=== PATIENT | male | born 1970 | race Caucasian/White ===

== ENCOUNTER 2020-07-24 08:09 | Outpatient (REF) | payer OTHER, SELFPAY ==
--- NOTE | 2020-07-24 08:19 | XR_ITS ---
EXAMINATION: XR CHEST CLINICAL INFORMATION: Left chest pressure COMPARISON: June 11, 2019 TECHNIQUE: 2 views of the chest were obtained. FINDINGS: No significant abnormality is noted involving the heart, lungs, mediastinum, bony thorax or soft tissues. XR/XR chest 2V IMPRESSION: No acute disease.
== END 2020-07-24 08:10 | disposition home or self-care (01) ==
LOC: HO.XRAY 08:09
PROVIDERS: PCP Internal Medicine; Visit Provider Internal Medicine
DX: R07.89 Other chest pain (principal)
CPT/HCPCS: 71046

== ENCOUNTER 2020-11-19 15:58 | Outpatient (REF) | payer OTHER, SELFPAY ==
[2020-11-19 16:17] LABS: MANUAL DIFF FLAG NO
[2020-11-19 16:21] LABS: Basophils Absolute Auto 0.1 X10*3/uL (0.0-0.2); Basophils Percent Auto 0.9 % (0-2); Eosinophils Absolute Auto 0.1 X10*3/uL (0.0-0.4); Eosinophils Percent Auto 2.1 % (0-4); Hematocrit 42.1 % (42-52); Hemoglobin 14.5 g/dl (14.0-18.0); Imm Gran Abs Auto 0.02 X10*3/uL (0.00-0.03); Imm Gran Pct Auto 0.3 % (0.0-0.4); Lymphocytes Absolute Auto 2.3 X10*3/uL (1.2-4.9); Lymphocytes Percent Auto 34.2 % (20-40); Mean Corpuscular HGB Conc 34.4 g/dl (31.0-36.0); Mean Corpuscular Volume 95.7 fL (80-98); Mean Platelet Volume 11.7 fL (9.4-12.4); Monocytes Absolute Auto 0.6 X10*3/uL (0.1-1.2); Monocytes Percent Auto 9.1 % (2-11); Neutrophils Absolute Auto 3.6 X10*3/uL (2.0-8.3); Neutrophils Percent Auto 53.4 % (45-73); Platelet Count 236 X10*3/uL (160-400); Red Cell Distribution Width 11.7 % (11.0-16.0); White Blood Count 6.7 X10*3/uL (4.8-10.8)
[2020-11-19 16:49] LABS: Alanine Aminotransferase 43 U/L (0-40); Albumin Level 4.6 g/dL (3.5-5.0); Alkaline Phosphatase 39 U/L (39-117); Anion Gap 14 (12-20); Aspartate Amino Transferase 20 U/L (5-37); Bilirubin Total 0.5 mg/dL (0.0-1.0); Blood Urea Nitrogen 17 mg/dL (9-16); C Reactive Protein 0.07 mg/dL (< or = 0.50); Calcium 9.7 mg/dL (8.4-10.2); Carbon Dioxide 27 mmol/L (22-29); Chloride 105 mmol/L (96-108); Cholesterol 206 mg/dL; Estimated Glomerular Filt Rate > 60; Glucose Random 141 mg/dL (60-115); HDL Cholesterol 39 mg/dL; LDL Cholesterol Calculated 100 mg/dl; Sodium 142 mmol/L (135-145); Total Protein 7.7 g/dL (6.5-8.0); Triglycerides 339 mg/dL
[2020-11-19 17:12] LABS: T4 Thyroxine 6.5 ug/dL (4.5-12.0); Thyroid Stimulating Hormone 1.61 uIU/mL (0.32-4.0)
== END 2020-11-19 15:59 | disposition home or self-care (01) ==
LOC: HO.LAB 15:58
PROVIDERS: PCP Internal Medicine; Visit Provider Internal Medicine
DX: G47.33 Obstructive sleep apnea (adult) (pediatric) (principal); J45.909 Unspecified asthma, uncomplicated; T68.XXXA Hypothermia, initial encounter
CPT/HCPCS: 36415; 80053; 80061; 84436; 84443; 85025; 86140

== ENCOUNTER 2020-11-30 08:48 | Outpatient (REF) | payer OTHER, SELFPAY ==
[2020-11-30 10:06] LABS: Estimated Average Glucose 105 mg/dL; Hemoglobin A1c % 5.3 %
[2020-11-30 10:20] LABS: Glucose Random 90 mg/dL (60-115)
== END 2020-11-30 08:49 | disposition home or self-care (01) ==
LOC: HO.LAB 08:48
PROVIDERS: PCP Internal Medicine; Visit Provider Internal Medicine
DX: R73.03 Prediabetes (principal); R73.9 Hyperglycemia, unspecified
CPT/HCPCS: 36415; 82947; 83036

== ENCOUNTER 2020-12-29 11:25 | Outpatient (REF) | payer OTHER, SELFPAY ==
[2020-12-29 12:11] LABS: Influenza A PCR NEGATIVE (Negative); Influenza B PCR NEGATIVE (Negative); Resp Syncy Virus RNA Qual PCR NEGATIVE (Negative); SARS COV2 PCR INHOUSE NEGATIVE (Negative)
== END 2020-12-29 11:26 | disposition home or self-care (01) ==
LOC: HO.LNP 11:25
PROVIDERS: Visit Provider Internal Medicine
DX: Z20.822 Contact with and (suspected) exposure to COVID-19 (principal)
CPT/HCPCS: 0241U

== ENCOUNTER 2021-02-09 16:43 | Outpatient (REF) | payer OTHER, SELFPAY ==
--- NOTE | ~2021-02-09 | XR_ITS ---
EXAMINATION: PELVIS AND LUMBAR SPINE. CLINICAL INFORMATION: Joint pain COMPARISON: None TECHNIQUE: 3 views lumbar spine. Single view AP pelvis FINDINGS: AP PELVIS: There is normal symmetry of bilateral hip joints and SI joints. No visible acute fracture, dislocation or subluxation seen. LUMBAR SPINE: There is normal lumbar lordosis. The vertebral heights, alignment and disc heights are normal. There is no visible acute fracture, dislocation or subluxation seen. The paravertebral soft tissues are normal. XR/XR lumbar spine 2-3V IMPRESSION: Unremarkable AP pelvis. Unremarkable lumbar spine exam
--- NOTE | ~2021-02-09 | XR_ITS ---
EXAMINATION: PELVIS AND LUMBAR SPINE. CLINICAL INFORMATION: Joint pain COMPARISON: None TECHNIQUE: 3 views lumbar spine. Single view AP pelvis FINDINGS: AP PELVIS: There is normal symmetry of bilateral hip joints and SI joints. No visible acute fracture, dislocation or subluxation seen. LUMBAR SPINE: There is normal lumbar lordosis. The vertebral heights, alignment and disc heights are normal. There is no visible acute fracture, dislocation or subluxation seen. The paravertebral soft tissues are normal. XR/XR pelvis 1-2V IMPRESSION: Unremarkable AP pelvis. Unremarkable lumbar spine exam
== END 2021-02-09 16:44 | disposition home or self-care (01) ==
LOC: HO.XRAY 16:43
PROVIDERS: PCP Internal Medicine; Visit Provider Internal Medicine
DX: M54.5 Low back pain (principal); R10.2 Pelvic and perineal pain
CPT/HCPCS: 72100; 72170

== ENCOUNTER 2021-03-12 12:32 | Outpatient (REF) | payer OTHER, SELFPAY ==
[2021-03-12 14:34] LABS: Estimated Average Glucose 103 mg/dL; Hemoglobin A1c % 5.2 %
[2021-03-12 15:04] LABS: Anion Gap 13 (12-20); Blood Urea Nitrogen 12 mg/dL (9-16); Calcium 9.3 mg/dL (8.4-10.2); Carbon Dioxide 24 mmol/L (22-29); Chloride 107 mmol/L (96-108); Estimated Glomerular Filt Rate > 60; Glucose Random 73 mg/dL (60-115); Potassium 4.4 mmol/L (3.3-5.1); Sodium 140 mmol/L (135-145)
== END 2021-03-12 12:33 | disposition home or self-care (01) ==
LOC: HO.LAB 12:32
PROVIDERS: PCP Internal Medicine; Visit Provider Internal Medicine
DX: R73.03 Prediabetes (principal)
CPT/HCPCS: 36415; 80048; 83036

== ENCOUNTER 2022-02-16 08:16 | Outpatient (REF) | payer OTHER, SELFPAY ==
--- NOTE | ~2022-02-16 | XR_ITS ---
EXAMINATION: XR WRIST, RIGHT CLINICAL INFORMATION: Pain in right wrist. COMPARISON: None TECHNIQUE: 4 views. FINDINGS: There is fracture involving the radial styloid process of indeterminate age with mild soft tissue. No additional fractures seen. The radioulnar carpal, carpometacarpal and intercarpal joint spaces are maintained normal. There is no visible acute fracture, dislocation or subluxation seen. XR/XR wrist RT w scaphoid IMPRESSION: There is fracture involving the ulnar styloid process with mild deformity and mild soft tissue swelling along the distal radius. Indeterminate fracture age. Correlate with clinical history.
== END 2022-02-16 08:17 | disposition home or self-care (01) ==
LOC: HO.HOSX 08:16
PROVIDERS: PCP Internal Medicine; Visit Provider Orthopaedic Surgery
DX: S52.501P Unspecified fracture of the lower end of right radius, subsequent encounter for closed fracture with malunion (principal)
CPT/HCPCS: 73110

== ENCOUNTER 2022-10-11 11:51 | Outpatient (REF) | payer OTHER, SELFPAY ==
--- NOTE | ~2022-10-11 | XR_ITS ---
EXAMINATION: XR CHEST CLINICAL INFORMATION: Cough, asthma COMPARISON: Chest radiographs 07/24/2020, 06/11/2019 TECHNIQUE: 2 views of the chest were obtained. FINDINGS: The lungs are clear. No airspace consolidation, hyperinflation, groundglass opacity, or effusion. Heart size normal. Vascularity normal. The hilar and mediastinal contours are unremarkable. No acute bony abnormality. XR/XR chest 2V IMPRESSION: Unremarkable examination.
--- NOTE | ~2022-10-11 | XR_ITS ---
EXAMINATION: XR KNEE, RIGHT XR KNEE, LEFT CLINICAL INFORMATION: Knee pain COMPARISON: None TECHNIQUE: Each knee is imaged in 4 views. There are a total of 8 views, including AP projections with weightbearing. FINDINGS: Right: No fracture, dislocation, or destructive process. There is no joint narrowing or erosive change or chondrocalcinosis. Axial view patella shows no lateralization or tilting. There is trace thickening suprapatellar bursa consistent with trace effusion. Hoffa's fat pad appears normal. There is spurring at the quadriceps insertion patella. Left: No fracture, dislocation, or destructive process. There is no joint narrowing or erosive change or chondrocalcinosis. Axial view patella shows no lateralization or tilting. No effusion. Hoffa's fat pad appears normal. XR/XR knee RT 4V IMPRESSION: Right: -Trace fluid suprapatellar bursa. -Spurring quadriceps insertion patella. -No joint narrowing or erosive change or chondrocalcinosis. Left: -No joint narrowing or erosive change or chondrocalcinosis. -No effusion.
--- NOTE | ~2022-10-11 | XR_ITS ---
EXAMINATION: XR KNEE, RIGHT XR KNEE, LEFT CLINICAL INFORMATION: Knee pain COMPARISON: None TECHNIQUE: Each knee is imaged in 4 views. There are a total of 8 views, including AP projections with weightbearing. FINDINGS: Right: No fracture, dislocation, or destructive process. There is no joint narrowing or erosive change or chondrocalcinosis. Axial view patella shows no lateralization or tilting. There is trace thickening suprapatellar bursa consistent with trace effusion. Hoffa's fat pad appears normal. There is spurring at the quadriceps insertion patella. Left: No fracture, dislocation, or destructive process. There is no joint narrowing or erosive change or chondrocalcinosis. Axial view patella shows no lateralization or tilting. No effusion. Hoffa's fat pad appears normal. XR/XR knee LT 4V IMPRESSION: Right: -Trace fluid suprapatellar bursa. -Spurring quadriceps insertion patella. -No joint narrowing or erosive change or chondrocalcinosis. Left: -No joint narrowing or erosive change or chondrocalcinosis. -No effusion.
[2022-10-11 12:16] LABS: MANUAL DIFF FLAG NO
[2022-10-11 13:07] LABS: Basophils Absolute Auto 0.1 X10*3/uL (0.0-0.2); Basophils Percent Auto 0.9 % (0-2); Eosinophils Absolute Auto 0.2 X10*3/uL (0.0-0.4); Eosinophils Percent Auto 2.5 % (0-4); Hematocrit 43.2 % (42.0-52.0); Hemoglobin 14.6 g/dl (14.0-18.0); Imm Gran Abs Auto 0.02 X10*3/uL (0.00-0.03); Imm Gran Pct Auto 0.3 % (0.0-0.4); Lymphocytes Absolute Auto 2.6 X10*3/uL (1.2-4.9); Lymphocytes Percent Auto 38.7 % (20-40); Mean Corpuscular HGB Conc 33.8 g/dl (31.0-36.0); Mean Corpuscular Hemoglobin 32.5 pg (27.0-33.0); Mean Corpuscular Volume 96.2 fL (80.0-98.0); Monocytes Absolute Auto 0.8 X10*3/uL (0.1-1.2); Monocytes Percent Auto 11.2 % (2-11); Neutrophils Absolute Auto 3.1 x10*3/uL (2.0-8.3); Neutrophils Percent Auto 46.4 % (45-73); Platelet Count 234 X10*3/uL (160-400); Red Blood Count 4.49 X10*6/uL (4.60-5.80); Red Cell Distribution Width 11.8 % (11.0-16.0); White Blood Count 6.7 X10*3/uL (4.8-10.8)
[2022-10-11 14:01] LABS: Alanine Aminotransferase 27 U/L (0-40); Albumin Level 4.7 g/dL (3.5-5.0); Alkaline Phosphatase 32 U/L (39-117); Anion Gap 15 (12-20); Aspartate Amino Transferase 17 U/L (5-37); Bilirubin Total 0.8 mg/dL (0.0-1.0); Blood Urea Nitrogen 16 mg/dL (9-16); Calcium 9.9 mg/dL (8.4-10.2); Carbon Dioxide 23 mmol/L (22-29); Chloride 107 mmol/L (96-108); Cholesterol 257 mg/dL; Estimated Glomerular Filt Rate > 60; Glucose Fasting 78 mg/dL (60-99); HDL Cholesterol 43 mg/dL; LDL Cholesterol Calculated 185 mg/dl; Potassium 4.3 mmol/L (3.3-5.1); Sodium 141 mmol/L (135-145); Total Protein 7.6 g/dL (6.5-8.0); Triglycerides 145 mg/dL
== END 2022-10-11 11:52 | disposition home or self-care (01) ==
LOC: HO.XRAY 11:51
PROVIDERS: PCP Internal Medicine; Visit Provider Internal Medicine
DX: Z00.00 Encounter for general adult medical examination without abnormal findings (principal); M25.562 Pain in left knee; M25.561 Pain in right knee; J45.909 Unspecified asthma, uncomplicated
CPT/HCPCS: 36415; 71046; 73564; 80053; 80061; 85025

== ENCOUNTER 2023-02-10 07:23 | Day surgery (SDC) | payer OTHER, SELFPAY ==
--- NOTE | 2023-02-09 14:07 | P.CONAN_ITS ---
Documented by User: Mago Bee NP 02/09/23 14:08 HPI - Anesthesia Eval Consult details Narrative: 52yo M for Upper Endoscopy and Colonoscopy PMF Active Problems Active Problems: All Active Problems (Updated 02/09/23 @ 13:48 by Yenifer Beth RN) Right wrist pain (Acute) Fracture of distal end of right radius with malunion (Acute) Past Medical History Medical History (Updated 02/09/23 @ 13:48 by Yenifer Beth RN) Asthma GERD (gastroesophageal reflux disease) High cholesterol HTN (hypertension) IBS (irritable bowel syndrome) Surgical History Surgical History (Updated 02/09/23 @ 13:48 by Yenifer Beth RN) H/O colonoscopy H/O esophagogastroduodenoscopy H/O hernia repair Social History Social History (Updated 02/16/22 @ 08:40 by SHANNON Felipe) Patient Tobacco Use Status: Former Tobacco user Quit Date: 2021 Tobacco use type: Cigarette Use of substances other than those prescribed or required for medical reasons: Yes Substance Use Type Other:: gummies thc Substance Use Frequency: Occasionally Are you DNR?: No Advance Directives: No Advance Directives Information Provided: Yes Current occupational status: employed 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 Meds Allergies Allergy/AdvReac Type Severity Reaction Status Date / Time aspirin [ASPIRIN] Allergy Unknown STOMACH Unverified 02/16/22 08:39 UPSET Home Medications Medication Instructions Recorded Confirmed Last Taken Type albuterol sulfate 90 mcg/actuation 2 puff PO TID PRN Wheezing 02/16/22 Unknown History aerosol inhaler atorvastatin 10 mg tablet 10 mg PO DAILY 02/09/23 02/09/23 Unknown History pantoprazole 40 mg tablet,delayed 40 mg PO DAILY 02/09/23 02/09/23 Unknown History release Exam Exam Date and Time: February 09, 2023 1407 Pertinent Lab Results Pertinent Lab Results: Laboratory Tests 10/11/22 10/11/22 12:15 12:15 WBC 6.7 Hgb 14.6 Hct 43.2 Plt Count 234 Sodium 141 Potassium 4.3 Chloride 107 Carbon Dioxide 23 BUN 16 Creatinine 1.06 Assessment and Plan Assessment Anesthesia Assessment: Chart Reviewed Documented by User: Alva Oliver MD 02/10/23 09:45 [facility] Past Medical History Medical History (Updated 02/09/23 @ 13:48 by Yenifer Beth RN) Asthma GERD (gastroesophageal reflux disease) High cholesterol HTN (hypertension) IBS (irritable bowel syndrome) Family History Family history of problems with anesthesia: No Surgical History Surgical History (Updated 02/09/23 @ 13:48 by Yenifer Beth RN) H/O colonoscopy H/O esophagogastroduodenoscopy H/O hernia repair History of Problems with Anesthesia: No Social History Social History (Updated 02/16/22 @ 08:40 by Mirella York [facility] Patient Tobacco Use Status: Former Tobacco user Quit Date: 2021 Tobacco use type: Cigarette Use of substances other than those prescribed or required for medical reasons: Yes Substance Use Type Other:: gummies thc Substance Use Frequency: Occasionally Are you DNR?: No Advance Directives: No Advance Directives Information Provided: Yes Current occupational status: employed 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 Meds Allergies Allergy/AdvReac Type Severity Reaction Status Date / Time aspirin [ASPIRIN] Allergy Unknown STOMACH Unverified 02/16/22 08:39 UPSET Home Medications Medication Instructions Recorded Confirmed Last Taken Type albuterol sulfate 90 mcg/actuation 2 puff PO TID PRN Wheezing 02/16/22 Unknown History aerosol inhaler atorvastatin 10 mg tablet 10 mg PO DAILY 02/09/23 02/09/23 Unknown History pantoprazole 40 mg tablet,delayed 40 mg PO DAILY 02/09/23 02/09/23 Unknown History release Exam Airway Mallampati Class: I TM Dist: >3cm Neck ROM: Full Loose/Missing/Broken Teeth: No Heart: rr Lungs: cta Assessment and Plan Assessment Anesthesia Assessment: Anesthesia Plan Discussed Final Anesthetic Review Family History of Problems with Anesthesia: No History of Problems with Anesthesia: No NPO: Yes ASA Class: II Final Preanesthetic Review: No Changes in Pt Med Stat, Meds/Allgs Chart Reviewed, Consent Obtained/Reviewed and Anes Risks/Benef Reviewed Patient Risk: Low Procedure Risk: Low Anesthetic Plan Anesthetic Plan: MAC: Disposition: Standard PACU
[2023-02-10 08:06] VITALS: BP 133/80; PULSE 46; RESP 16; TEMP 36.3; O2SAT 98; BMI 29.2
[2023-02-10] MEDS: Lactated Ringers 1,000 ML 100 ML IVCONT (08:20)
--- NOTE | 2023-02-10 10:06 | PM.OP ---
Brief Operative Note Date of Service: 02/10/23 Pre-op diagnosis: GERD, Screening Post-op diagnosis: other (Small hiatal hernia, Colon polyp) Procedure: EGD, Colonoscopy to the cecum with cold snare polypectomy x 1 Surgeon: Danilo Harris Anesthesia: MAC Was an Operations Support Specialist used for this Procedure?: No Estimated blood loss (mL): 2.0 Pathology: other (A. Colon polyp at 15cm) Condition: stable Disposition: PACU
[2023-02-10 10:09] VITALS: BP 117/56; PULSE 75; RESP 16; TEMP 36.2; O2SAT 97
[2023-02-10 10:24] VITALS: BP 124/80; PULSE 60; RESP 18; TEMP 36.5; O2SAT 97
--- NOTE | 2023-02-10 10:56 | OP_ITS ---
DATE OF SERVICE: 02/10/2023 SURGEON: Danilo Harris MD INDICATIONS: The patient presents for evaluation of chronic gastroesophageal reflux and colorectal cancer screening. Full consent has been obtained from him for this, including risks of bleeding and perforation. PREOPERATIVE DIAGNOSIS: POSTOPERATIVE DIAGNOSIS: PROCEDURE PERFORMED: Esophagogastroduodenoscopy and colonoscopy to the cecum with cold snare polypectomy. ESTIMATED BLOOD LOSS: COMPLICATIONS: ANESTHESIA: Monitored anesthesia care. ASSISTANTS: SPECIMENS: PREOPERATIVE DIAGNOSES: Colorectal cancer screening and gastroesophageal reflux. POSTOPERATIVE DIAGNOSES: Colorectal cancer screening and gastroesophageal reflux, small hiatal hernia, colon polyp, diverticulosis, internal hemorrhoids. DESCRIPTION OF PROCEDURE: The patient was placed in the left lateral decubitus position. The Olympus video gastroscope was passed in the posterior oropharynx and upper esophagus under direct vision. The scope was passed slowly to the distal esophagus. The gastroesophageal junction appeared normal at 38 cm. There was no sign of any esophagitis nor Velasquez's esophagus. The scope entered the stomach. There was a small hiatal hernia. The scope was advanced to the pylorus and the duodenum was cannulated to the descending portion. The duodenum including the bulb appeared normal without mass or ulceration. The scope was withdrawn back to the stomach. The gastric antrum and body appeared normal with good peristalsis. The scope was retroflexed visualizing the proximal stomach carefully, which appeared normal, without any sign of mass or ulceration. The scope was straightened and withdrawn back to the esophagus. The esophageal mucosa appeared completely normal. The scope was withdrawn from the patient. He was turned around for the colonoscopy. The digital rectal exam revealed no abnormalities. The Olympus video pediatric colonoscope was entered into the rectum and advanced easily to the cecum. Once in the cecum, I did identify a normal-appearing cecal pouch with appendiceal orifice and a normal-appearing ileocecal valve. There was transillumination of light deep in the right lower quadrant. The scope was then slowly withdrawn assessing all mucosal surfaces carefully. Preparation was excellent. At 15 cm was an approximately 5 or 6 mm polyp, which was removed by cold snare polypectomy and recovered by suction. There was no sign of any residual polyp tissue nor any significant bleeding. I did not visualize any other polyps, colitis, nor angiodysplasia. There were occasional diverticula in the sigmoid colon. In the rectum, the scope was retroflexed visualizing small internal hemorrhoids, but no other pathology. The rectal mucosa appeared normal. The scope was straightened and withdrawn from the patient. He tolerated the procedures well and was returned to the recovery area in stable condition. IMPRESSION: 1. Colon polyp. 2. Mild diverticulosis. 3. Small internal hemorrhoids. 4. Small hiatal hernia. PLAN: The results of the pathology will be checked. If the colon polyp is a tubular adenoma, I would recommend a followup colonoscopy in 5 years. If it is only hyperplastic, I would recommend a followup closely in 10 years. He was advised not to use any aspirin or NSAIDs for 1 week. In regard to the reflux, I did advise him that he could use his pantoprazole daily if need be or switch to an [id number] PPI and/or H2 dominik as needed. He will otherwise see me on a p.r.n. basis. This has been discussed with his . MD DERRICK Quezada/LACY / [id number] MTDCasey
== END 2023-02-10 10:40 | disposition home or self-care (01) ==
PROVIDERS: PCP Internal Medicine; Visit Provider Internal Medicine
PROC: (CPT 45385; principal; 2023-02-10 09:30)
DX: Z12.11 Encounter for screening for malignant neoplasm of colon (principal); D12.6 Benign neoplasm of colon, unspecified; K57.30 Diverticulosis of large intestine without perforation or abscess without bleeding; K64.8 Other hemorrhoids; K21.9 Gastro-esophageal reflux disease without esophagitis; K44.9 Diaphragmatic hernia without obstruction or gangrene; I10 Essential (primary) hypertension; J45.909 Unspecified asthma, uncomplicated
CPT/HCPCS: 45385; 43235; 88305; J2250

== ENCOUNTER 2023-10-03 16:37 | Outpatient (REF) | payer OTHER, SELFPAY | END 2023-10-03 16:38 | disposition home or self-care (01) | LOC: HO.XRAY 16:37 | PROVIDERS: PCP Internal Medicine; Visit Provider Internal Medicine | DX: R05.9 Cough, unspecified (principal); R06.02 Shortness of breath | CPT/HCPCS: 71046 ==

== ENCOUNTER 2023-12-12 16:44 | Outpatient (REF) | payer OTHER, SELFPAY ==
[2023-12-12 16:55] LABS: MANUAL DIFF FLAG NO
[2023-12-12 17:50] LABS: Basophils Absolute Auto 0.1 X10*3/uL (0.0-0.2); Basophils Percent Auto 0.9 % (0-2); Eosinophils Absolute Auto 0.2 X10*3/uL (0.0-0.4); Eosinophils Percent Auto 2.6 % (0-4); Hematocrit 42.2 % (42.0-52.0); Hemoglobin 14.6 g/dl (14.0-18.0); Imm Gran Abs Auto 0.02 X10*3/uL (0.00-0.03); Imm Gran Pct Auto 0.3 % (0.0-0.4); Lymphocytes Absolute Auto 2.9 X10*3/uL (1.2-4.9); Lymphocytes Percent Auto 44.8 % (20-40); Mean Corpuscular HGB Conc 34.6 g/dl (31.0-36.0); Mean Corpuscular Hemoglobin 32.4 pg (27.0-33.0); Mean Corpuscular Volume 93.8 fL (80.0-98.0); Mean Platelet Volume 11.7 fL (9.4-12.4); Monocytes Absolute Auto 0.6 X10*3/uL (0.1-1.2); Monocytes Percent Auto 9.7 % (2-11); Neutrophils Absolute Auto 2.7 x10*3/uL (2.0-8.3); Neutrophils Percent Auto 41.7 % (45-73); Platelet Count 255 X10*3/uL (160-400); Red Cell Distribution Width 11.9 % (11.0-16.0); White Blood Count 6.5 X10*3/uL (4.8-10.8)
[2023-12-12 18:42] LABS: Alanine Aminotransferase 37 U/L (0-40); Albumin Level 4.6 g/dL (3.5-5.0); Alkaline Phosphatase 35 U/L (39-117); Anion Gap 13 (12-20); Aspartate Amino Transferase 21 U/L (5-37); Bilirubin Total 0.4 mg/dL (0.0-1.0); Blood Urea Nitrogen 13 mg/dL (9-16); Calcium 9.4 mg/dL (8.4-10.2); Carbon Dioxide 22 mmol/L (22-29); Chloride 111 mmol/L (96-108); Cholesterol 199 mg/dL (<200); Estimated Glomerular Filt Rate > 60; Glucose Random 92 mg/dL (60-115); Potassium 3.9 mmol/L (3.3-5.1); Sodium 142 mmol/L (135-145); Total Protein 7.9 g/dL (6.5-8.0)
[2023-12-12 18:50] LABS: Prostate Specific Antigen 0.63 ng/mL (<0.05-4.0)
[2023-12-12 18:51] LABS: Thyroid Stimulating Hormone 1.79 uIU/mL (0.32-4.0)
== END 2023-12-12 16:45 | disposition home or self-care (01) ==
LOC: HO.LAB 16:44
PROVIDERS: PCP Internal Medicine; Visit Provider Internal Medicine
DX: Z00.00 Encounter for general adult medical examination without abnormal findings (principal); Z12.5 Encounter for screening for malignant neoplasm of prostate
CPT/HCPCS: 36415; 80053; 82465; 84153; 84443; 85025

== ENCOUNTER 2024-05-07 16:29 | Outpatient (REF) | payer OTHER, SELFPAY ==
[2024-05-07 17:14] LABS: Appearance Urine Clear; Color Urine Yellow; Glucose Urine UA Negative (Negative); Leukocyte Esterase Urine Negative (Negative); Nitrite Urine Negative (Negative); PH 5.5 (5.0-9.0); Specific Gravity - Urine 1.025 (1.005-1.025); Urine Blood Negative (Negative); Urine Ketones Negative (Negative); Urine Protein Negative (Neg-Trace)
[2024-05-07 17:57] LABS: Anion Gap 14 (12-20); Blood Urea Nitrogen 17 mg/dL (9-16); Calcium 9.8 mg/dL (8.4-10.2); Carbon Dioxide 24 mmol/L (22-29); Chloride 105 mmol/L (96-108); Estimated Glomerular Filt Rate > 60; Glucose Random 100 mg/dL (60-115); Potassium 3.7 mmol/L (3.3-5.1); Sodium 139 mmol/L (135-145)
== END 2024-05-07 16:30 | disposition home or self-care (01) ==
LOC: HO.LAB 16:29
PROVIDERS: PCP Internal Medicine; Visit Provider Internal Medicine
DX: R30.0 Dysuria (principal)
CPT/HCPCS: 36415; 80048; 81003

== ENCOUNTER 2024-07-22 14:46 | Outpatient (REF) | payer OTHER, SELFPAY ==
--- NOTE | ~2024-07-22 | XR_ITS ---
EXAMINATION:XR CERVICAL SPINE 4-5 VIEWS CLINICAL INFORMATION: Neck pain COMPARISON: None TECHNIQUE: 5 views of the cervical spine were obtained. Frontal lateral both obliques and open-mouth odontoid view FINDINGS: 7 cervical vertebrae identified maintaining normal height and alignments.. Mild narrowing of intervertebral disc spaces at C4-C5, C5-C6, C6-C7 and C7-T1 suggests underlying mild degenerative disc disease. No prevertebral soft tissue swelling. Surrounding soft tissue and included lung apices are clear. Small osteophyte protruding from the edges of endplates encroaching on neural foramen at multiple level without causing significant osseous stenosis. Included lung apices and paravertebral soft tissue unremarkable. XR/XR cervical spine 5V IMPRESSION: * No fracture. * Bone alignments are satisfactory. * Mild narrowing of intervertebral disc spaces suggest underlying degenerative disc disease. Electronically signed by: Kalani Duarte MD 07/23/2024 09:56 AM EDT
== END 2024-07-22 14:47 | disposition home or self-care (01) ==
LOC: HO.XRAY 14:46
PROVIDERS: PCP Internal Medicine; Visit Provider Internal Medicine
DX: M54.2 Cervicalgia (principal)
CPT/HCPCS: 72050

== ENCOUNTER 2025-03-10 15:33 | Outpatient (AMB) | payer OTHER, SELFPAY ==
--- NOTE | 2025-03-10 15:36 | A.OFFPC_ITS ---
Vital Signs 03/10/25 15:42 03/10/25 16:08 Height 5 ft 9 in Weight 95.254 kg BMI 31.0 BP 130/90 H 120/70 Respiration 14 Pulse 58 Pulse Source Pulse Oximeter Temp 97.0 F Temp Source Temporal Artery Scan Pulse Oximetry (%) 97 Oxygen Delivery Method Room Air Intake Visit Reasons: Routine Watch Electrician Required: No Accompanied by: Self / Same As Patient Allergies aspirin [ASPIRIN] Allergy (Unknown, Unverified 03/10/25 15:37) STOMACH UPSET HPI HPI Comments History of Present Illness Details 54-year-old male with history of asthma, hyperlipidemia, GERD presents to the office today for management of chronic conditions and to establish care. Mild intermittent asthma- controlled no recent exacerbations Hyperlipidemia-not on statin GERD-controlled on omeprazole Right upper extremity radiculopathy-will request records from [facility] for cervical spine MRI. Last x-ray of the cervical spine does show degenerative disc disease. Currently pain is manageable. Has not been interested in physical therapy in the past. 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 PVC's- occasional palpitations. No sob. lightheadedness. Low burden Obesity- has gained about 12-14 lb in the last 2 years. He reports he had underwent LASIK surgery last year which did not go well and reports his eyes are actually worse than prior to the procedure. He reports that he had been depressed following this procedure but is now feeling better. As a result though he stopped running. He does report that he does not follow the most h ealthy diet and often H too many carbohydrates. ZULLY- uses cpap Former cigarette smoker- quit 3 years ago. started in teenage years. Initially about 1ppd, then 1/2 ppd until 3 years ago. Total >20pack years Health maintenance: Due for PSA Colonoscopy utd, had tubular adenoma, 5 year follow up advised. Due 2027 ROS: General: No fevers, malaise, unintentional weight loss Cardiovascular: No chest pain, palpitations, or leg edema Respiratory: No shortness of breath, wheezing, cough MSK: No myalgia, back pain. see hpi Neuro: No headaches, weakness, paresthesias Skin: No rashes or lesions EXAM: Constitutional - Awake and Alert, No apparent distress Eyes - PERRL Cardiovascular - S1S2, RRR, No edema Respiratory - Normal lung expansion, Normal respiratory effort, No respiratory distress, CTA bilaterally Extremities - no calf tenderness bilaterally, no swelling Skin - Warm/Dry Neurological - Alert & oriented x3 Psychological - Appropriate affect [facility] Medical History (Updated 03/10/25 @ 16:57 by BABAR Null) Former cigarette smoker Obesity ZULLY (obstructive sleep apnea) GERD (gastroesophageal reflux disease) IBS (irritable bowel syndrome) HTN (hypertension) Asthma High cholesterol Surgical History (Updated 03/07/25 @ 16:21 by Eva Pulido) H/O hernia repair H/O esophagogastroduodenoscopy H/O colonoscopy (~02/10/23) Social History (Updated 02/16/22 @ 08:40 by Mirella York [facility]) Patient Tobacco Use Status: Former Tobacco user Tobacco use type: Cigarette Current occupational status: employed 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 1. Little interest or pleasure in doing things: not at all 2. Feeling down, depressed, or hopeless: several days 3. Trouble falling or staying asleep, or sleeping too much: several days 4. Feeling tired or having little energy: not at all 5. Poor appetite or overeating: more than half the days 6. Feeling bad about yourself - or that you are a failure or have let yourself or your family down: not at all 7. Trouble concentrating on things, such as reading the newspaper or watching television: not at all 8. Moving or speaking so slowly that other people could have noticed. Or the opposite - being so fidgety or restless that you have been moving around a lot more than usual: not at all 9. Thoughts that you would be better off or of hurting yourself in some way: not at all Total score: 4 Source: Developed by Drs. Danilo Portillo, Trinity Terrazas, Santana Dow and colleagues, with an educational trent from [employer]. Thrive Questionnaire Date Thrive assessed: 03/10/25 I am a: Patient What is your living situation today?: I have a steady place to live Within the past 12 months, did the food you bought not last and you didn't have the money to get more?: Never true Within the past 12 months, did you worry whether your food would run out before you got money to buy more?: Never true Do you have trouble paying for medicines?: No Do you have trouble getting transportation to medical appointments?: No Do you have trouble paying your heating and electricity bill?: No Do you have trouble taking care of your child, family member or friend?: No Do you have trouble with day-to-day activities such as bathing, preparing meals, shopping, managing finances, etc.?: No Are you currently unemployed and looking for a job?: No Are you interested in more education?: No Please select the resources that you would like help with: None THRIVE Score: 0 AMY-7 AMB Questionnaire AMY-7 Date AMY - 7 assessed: 03/10/25 Feeling nervous, anxious, or on edge: 1 = Several days Not being able to stop or control worryin = Several days Worrying too much about different things: 1 = Several days Trouble relaxin = Several days Being so restless that it is hard to sit still: 0 = Not at all Becoming easily annoyed or irritable: 0 = Not at all Feeling afraid as if something awful might happen: 1 = Several days Total AMY-7 score (0-4 normal; 5-9 mild; 10-14 moderate; 15-21 severe): 5 Source: Developed by Drs. Danilo Portillo, Trinity Terrazas, Santana Dow and colleagues, with an educational trent from [employer]. Physical exam (Primary Care) Vital Signs: Last Vital Signs Temp 97.0 F 03/10/25 15:42 Pulse 58 03/10/25 15:42 Resp 14 03/10/25 15:42 BP 120/70 03/10/25 16:08 Pulse Ox 97 03/10/25 15:42 Oxygen Delivery Method Room Air 03/10/25 15:42 BMI result Body Mass Index 31.0 Tobacco/Smoking Status: Tobacco use Status Patient Tobacco Use Status Former Tobacco user 03/10/25 15:44 Tobacco use type Cigarette 03/10/25 15:44 PHQ-9: PHQ-9 Score PHQ-9: Total score 4 03/10/25 16:35 Thrive Assessment: Date of Thrive Assessment Date Thrive assessed 03/10/25 03/10/25 16:30 Coding Level of Care Code New Pt Level 4 (11711) Complex EM visit Add On G2211 Diagnoses High cholesterol E78.00 Asthma J45.909 GERD (gastroesophageal reflux disease) K21.9 ZULLY (obstructive sleep apnea) G47.33 Obesity E66.9 Radicular pain of right upper extremity M79.2 Assessment & Plan Assessment & Plan (1) High cholesterol: Code(s): E78.00 - Pure hypercholesterolemia, unspecified Category: Medical Plan: Lipid panel ordered. ASCVD risk score to be calculated pending results. Recommend healthy diet lower in saturated fats and highly processed foods as well as weight loss efforts (2) Asthma: Code(s): J45.909 - Unspecified asthma, uncomplicated Category: Medical Plan: Controlled. Albuterol p.r.n. (3) GERD (gastroesophageal reflux disease): Code(s): K21.9 - Gastro-esophageal reflux disease without esophagitis Category: Medical Plan: Controlled. Omeprazole (4) ZULLY (obstructive sleep apnea): Code(s): G47.33 - Obstructive sleep apnea (adult) (pediatric) Category: Medical Plan: CPAP (5) Obesity: Code(s): E66.9 - Obesity, unspecified Category: Medical Plan: Weight loss efforts encouraged. Recommend diet lower in calories with emphasis on increased protein/vegetables/fruit and lower in saturated fats, simple sugars/carbohydrates, and highly processed foods. Recommend increased exercise (6) Radicular pain of right upper extremity: Code(s): M79.2 - Neuralgia and neuritis, unspecified Category: Medical Plan: MRI of the cervical spine to be requested. Not interested in physical therapy at this time. Conservative measures recommended Plan Follow-up in the office in 6 months. Labs to be completed prior to visit today. Referred for lung cancer screening Orders: Orders Lipid Panel Today E78.00 - Pure hypercholesterolemia, unspecified, I10 - Essential (primary) hypertension, K21.9 - Gastro-esophageal reflux disease without esophagitis, Z12.5 - Encounter for screening for malignant neoplasm of prostate, Z13.1 - Encounter for screening for diabetes mellitus Liver Panel Today E78.00 - Pure hypercholesterolemia, unspecified, I10 - Essential (primary) hypertension, K21.9 - Gastro-esophageal reflux disease without esophagitis, Z12.5 - Encounter for screening for malignant neoplasm of prostate, Z13.1 - Encounter for screening for diabetes mellitus Prostate Specific Antigen Today E78.00 - Pure hypercholesterolemia, unspecified, I10 - Essential (primary) hypertension, K21.9 - Gastro-esophageal reflux disease without esophagitis, Z12.5 - Encounter for screening for malignant neoplasm of prostate, Z13.1 - Encounter for screening for diabetes mellitus Basic Metabolic Panel Today E78.00 - Pure hypercholesterolemia, unspecified, I10 - Essential (primary) hypertension, K21.9 - Gastro-esophageal reflux disease without esophagitis, Z12.5 - Encounter for screening for malignant neoplasm of prostate, Z13.1 - Encounter for screening for diabetes mellitus Hemoglobin A1c Today E78.00 - Pure hypercholesterolemia, unspecified, I10 - Essential (primary) hypertension, K21.9 - Gastro-esophageal reflux disease without esophagitis, Z12.5 - Encounter for screening for malignant neoplasm of prostate, Z13.1 - Encounter for screening for diabetes mellitus Complete Blood Count Auto Diff Today E78.00 - Pure hypercholesterolemia, unspecified, I10 - Essential (primary) hypertension, K21.9 - Gastro-esophageal reflux disease without esophagitis, Z12.5 - Encounter for screening for malignant neoplasm of prostate, Z13.1 - Encounter for screening for diabetes mellitus Referrals Lung Cancer Screening Referral Z87.891 - Personal history of nicotine dependence
[2025-03-10 15:42] VITALS: BP 130/90; PULSE 58; RESP 14; TEMP 36.1; O2SAT 97; BMI 31.0
[2025-03-10 16:08] VITALS: BP 120/70
--- OUTSIDE RECORDS SUMMARY | 2025-03-10 17:17 | XMS_ITS | Patient Health Record ---
Author Organization [facility] Address [address] [place] [address] Care Team Providers Care Closing Coordinator Name Role Phone Rafael Ely MD Primary Care Provider Danilo Alexander Unavailable [phone] Allergies Allergen (clinical drug ingredient) Drug/Non Drug Allergy documented on EMR Reaction Allergy Type Onset Date Status aspirin Aspirin Unknown Drug Allergy Active Reason For Referral No Information Medications Medication SIG (Take, Route, Frequency, Duration) Notes Start Date End Date Status Albuterol Active Pantoprazole Sodium 40 MG 1 tablet Orall y Once a day Active Atorvastatin Calcium 10 MG 1 tablet Oral ly Once a day Active Immunizations Vaccine Route Administration Date Status Comme nts Influenza Unknown 12/06/2022 Refused Social History Tobacco Use: Social History Observation Description Date Details (start date - stop date) Former Smoker NA - NA Tobacco Use/Smoking Question Answer Notes Patient is a former smoker How long has it been since you last smoked? 1-3 months Alcohol Screen Question Answer Notes Did you have a drink contain ing alcohol in the past year? Yes How often did you have a dri nk containing alcohol in the past year? 2 to 4 times a month (2 points) How many drinks did you have on a typical day when you were drinking in the past year? 3 or 4 drinks (1 point) Points 3 Interpretation Negative Section Notes: Smoker 10 cigs QD; 1 beer QD , and a little more on the weekend; smokes marijuana occasionally Nonsmoker x 4 months as of t jackie 11/2022 OV; occ. alcohol. Problems Problem Type SNOMED Code ICD Code Onset Dates Problem Status W/U Status Risk Notes Problem 844226816 Colon cancer screening (Z12.11) Active confirmed Problem 832832898 Gastro-esophagea l reflux disease without esophagitis (K21.9) Active confirmed Problem 43689065 Diarrhea (R19.7) Active confirmed Problem Diverticular disease of colon (852712943) Diverticulosis of large intestine without perforation or abscess without bleeding (K57.30) Active confirmed Problem 704960378 Irritable bowel syndrome with diarrhea (K58.0) Active confirmed Problem Gastroesophageal reflux disease (K21.9) Active confirmed Problem 214416467 Blood in stool (K92.1) Active confirmed Problem 434140122 Elevated liver enzymes (R74.8) Active confirmed Problem 556172290 Gastroesophageal reflux disease, unspecified whether esophagitis present (K21.9) Active confirmed Plan Of Treatment Pending Test Test Name Order Date LIVER PROFILE 08/26/2015 HEPATITIS A,B,C PROFILE 08/26/2015 CELIAC PANEL #10 08/21/2015 Future Test Test Name Order Date UPPER GI ENDOSCOPY 08/21/2015 COLONOSCOPY 08/21/2015 UPPER GI ENDOSCOPY 12/06/2022 COLONOSCOPY 12/06/2022 Insurance Providers Payer Name Payer Address Payer Phone Subscriber Number Group Number Insured Name Patient Relationship to Insured Coverage Start Date Coverage End Date [facility] [address] [place] [phone] [id number] AMADOU JACKMAN Self - patient is the insured Medical (General) History Medical History History ICD Code Asthma Hypertension Denies [place],DM,CVA,Lung disease,renal dise ase IBS-longstanding intermitent loose stool GERD-OTC Prilosec or H2-Blockers Negative colonoscopy in 2016 other than some internal hemorrhoids Upper endoscopy in 2016 reve aled a small hiatal hernia but no esophagitis nor Velasquez's esophagus; duodenal biopsies were negative for celiac disease Surgical History Surgery Date(Month/Year) Hernia repair as an infant
== END 2025-03-10 16:12 | disposition home or self-care (01) ==
LOC: HO.HMCHD 15:34
PROVIDERS: PCP Internal Medicine; Visit Provider Physician Assistant
DX: E78.00 Pure hypercholesterolemia, unspecified (principal); J45.909 Unspecified asthma, uncomplicated; K21.9 Gastro-esophageal reflux disease without esophagitis; G47.33 Obstructive sleep apnea (adult) (pediatric); E66.9 Obesity, unspecified; M79.2 Neuralgia and neuritis, unspecified

== ENCOUNTER 2025-05-12 08:01 | Outpatient (REF) | payer OTHER, SELFPAY ==
--- OUTSIDE RECORDS SUMMARY | 2025-05-12 08:06 | XMS_ITS | Patient Health Record ---
Author Organization [facility] Address [address] [place] [address] Care Team Providers Care Rate Marker Name Role Phone [employer] (RETIRED) Rafael CHAMORRO Primary Care Provide r Mary HarrisDanilo Unavailable [phone] Allergies Allergen (clinical drug ingredient) Drug/Non Drug [...] Problem Status W/U Status Risk Notes Problem 091350459 Colon cancer screening (Z12.11) Active confirmed Problem 117896114 Gastro-esophagea l reflux disease without esophagitis (K21.9) Active confirmed Problem 44834381 Diarrhea (R19.7) Active confirmed Problem Diverticular disease of colon (605253828) Diverticulosis of large intestine without perforation or abscess without bleeding (K57.30) Active confirmed Problem 056139504 Irritable bowel syndrome with diarrhea (K58.0) Active confirmed Problem Gastroesophageal reflux disease (K21.9) Active confirmed Problem 769752492 Blood in stool (K92.1) Active confirmed Problem 576749365 Elevated liver enzymes (R74.8) Active confirmed Problem 732311875 Gastroesophageal reflux disease, unspecified whether esophagitis present [...] Insured Coverage Start Date Coverage End Date [facility] [address] [place] [address] [phone] [id number] AMADOU JACKMAN Self - patient is the insured Medical (General) History Medical History History ICD Code Asthma Hypertension Denies [place],DM,CVA,Lung disease,renal dise ase IBS-longstanding intermitent loose stool GERD-OTC Prilosec or H2-Blockers Negative colonoscopy in 2016 other than some internal hemorrhoids Upper endoscopy in 2016 reve aled a small hiatal hernia but no esophagitis nor Velasquez's esophagus; duodenal biopsies were negative for celiac disease Surgical History Surgery Date(Month/Year) Hernia repair as an
[2025-05-12 08:14] LABS: MANUAL DIFF FLAG NO
[2025-05-12 08:41] LABS: Hematocrit 42.1 % (42.0-52.0); Hemoglobin 14.2 g/dl (14.0-18.0); Imm Gran Abs Auto 0.02 X10*3/uL (0.00-0.03); Imm Gran Pct Auto 0.3 % (0.0-0.4); Lymphocytes Absolute Auto 2.1 X10*3/uL (1.2-4.9); Mean Corpuscular HGB Conc 33.7 g/dl (31.0-36.0); Mean Corpuscular Hemoglobin 32.3 pg (27.0-33.0); Mean Corpuscular Volume 95.7 fL (80.0-98.0); NRBC Abs Auto 0.000 X10*3/uL (0.0-0.012); NRBC Pct Auto 0.0 /100WBC (0.0-0.2); Platelet Count 197 X10*3/uL (160-400); Red Blood Count 4.40 X10*6/uL (4.60-5.80); White Blood Count 7.0 X10*3/uL (4.8-10.8)
[2025-05-12 09:12] LABS: Hemoglobin A1C 155.0543 umol/L; Total Hemoglobin (HGBA1C) 4326.7167 umol/L
[2025-05-12 09:19] LABS: Alanine Aminotransferase 40 U/L (0-40); Albumin Level 4.8 g/dL (3.5-5.0); Alkaline Phosphatase 35 U/L (39-117); Anion Gap 10 (12-20); Aspartate Amino Transferase 28 U/L (5-37); Blood Urea Nitrogen 14 mg/dL (9-16); Calcium 9.4 mg/dL (8.4-10.2); Carbon Dioxide 25 mmol/L (22-29); Chloride 111 mmol/L (96-108); Cholesterol 204 mg/dL (<200); Estimated Glomerular Filt Rate > 60; HDL Cholesterol 44 mg/dL (>40); Potassium 4.1 mmol/L (3.3-5.1); Sodium 142 mmol/L (135-145); Total Protein 7.6 g/dL (6.5-8.0); Triglycerides 153 mg/dL (<150)
[2025-05-12 09:31] LABS: Prostate Specific Antigen 0.98 ng/mL (<0.05-4.0)
== END 2025-05-12 08:02 | disposition home or self-care (01) ==
LOC: HO.LAB 08:01
PROVIDERS: PCP Physician Assistant; Visit Provider Physician Assistant
DX: Z12.5 Encounter for screening for malignant neoplasm of prostate (principal); Z13.1 Encounter for screening for diabetes mellitus; K21.9 Gastro-esophageal reflux disease without esophagitis; E78.00 Pure hypercholesterolemia, unspecified; I10 Essential (primary) hypertension
CPT/HCPCS: 36415; 80048; 80061; 80076; 83036; 84153; 85025

== ENCOUNTER 2025-07-07 15:59 | Outpatient (AMB) | payer OTHER, SELFPAY ==
--- NOTE | 2025-07-07 15:38 | A.OFFPC_ITS ---
Vital Signs 07/07/25 16:09 Height 5 ft 9 in Weight 90.718 kg BMI 29.5 BP 124/80 Blood Pressure Location Lt brachial Position Sitting Respiration 16 Pulse 53 Pulse Source Pulse Oximeter Temp 97.3 F Temp Source Temporal Artery Scan Pulse Oximetry (%) 97 Oxygen Delivery Method Room Air Intake Visit Reasons: back pain Rvda Master Certified Rv Technician Required: No Accompanied by: Self / Same As Patient Allergies aspirin (ASPIRIN) Allergy (Unknown, Verified 07/07/25 15:38) STOMACH UPSET Tobacco use date assessed: 07/07/25 Dental Screening Dental Screen Date: 07/07/25 Did you have a dental visit in the last 12 months?: Yes Did you have a dental problem in the last 6 months where you did not have access to dental care?: No Was dental information given to patient?: Patient has dentist HPI HPI Comments History of Present Illness Details 54-year-old male with history of asthma, hyperlipidemia, GERD presents to the office today for evaluation of low back pain. He reports that he has a history of recurrent low back/SI joint pain dating back several years. Denies any known inciting injury. About 2.5 months ago, the pain flared up again which was thought to be secondary to exercise and power walking. He states the pain is primarily in the left low back/SI joint. Reports constant pain that waxes and wanes in severity with severe tweaks with random movements. He states that despite taking ibuprofen 400 mg daily sometimes twice daily and using a 10s machine and lidocaine patches he is not experiencing total relief. There is no radiation of the pain. Reports occasional tingling in the left lower extremity. No instability/weakness. No bowel/bladder dysfunction. He has tried home exercises as well. He did have an x-ray of the pelvis in 2020 which was unremarkable. ROS: See HPI EXAM: Constitutional - Awake and Alert, No apparent distress Eyes - PERRL Cardiovascular - S1S2, RRR, No edema Respiratory - Normal lung expansion, Normal respiratory effort, No respiratory distress, CTA bilaterally Extremities - no calf tenderness bilaterally, no swelling MSK-no midline or paraspinal tenderness to palpation. Full extension and flexion. Negative straight leg raises Skin - Warm/Dry Neurological - Alert & oriented x. 5/5 strength ble. 2+ equal patellar reflexes Psychological - Appropriate affect [facility] Medical History (Updated 07/07/25 @ 16:30 by BABAR Null) Tubular adenoma of colon Personal history of nicotine dependence Obesity ZULLY (obstructive sleep apnea) GERD (gastroesophageal reflux disease) IBS (irritable bowel syndrome) HTN (hypertension) Asthma High cholesterol Surgical History (Updated 06/19/25 @ 12:36 by Jo Ann Noel PA-C) History of colonoscopy History of esophagogastroduodenoscopy (EGD) H/O hernia repair Social History (Updated 02/16/22 @ 08:40 by Mirella York [facility]) [facility] Patient Tobacco Use Status: Former Tobacco user Tobacco use type: Cigarette e-Cigarette/Vaping Use: Never Used service: No Current occupational status: employed 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 How often do you have a drink containing alcohol?: Monthly or less 2. How many drinks containing alcohol do you have on a typical day when you are drinking?: 3 or 4 3. How often do you have six or more drinks on one occasion?: Never Total Score: 2 AMY-7 AMB Questionnaire AMY-7 Date AMY - 7 assessed: 03/10/25 Source: Developed by Drs. Danilo Portillo, Trinity Terrazas, Santana Dow and colleagues, with an educational trent from [employer]. Physical exam (Primary Care) Vital Signs: Last Vital Signs Temp 97.3 F 07/07/25 16:09 Pulse 53 07/07/25 16:09 Resp 16 07/07/25 16:09 BP 124/80 07/07/25 16:09 Pulse Ox 97 07/07/25 16:09 Oxygen Delivery Method Room Air 07/07/25 16:09 BMI result Body Mass Index 29.5 Tobacco/Smoking Status: Tobacco use Status Tobacco use date assessed 07/07/25 07/07/25 16:11 Patient Tobacco Use Status Former Tobacco user 07/07/25 15:39 Tobacco use type Cigarette 07/07/25 15:39 e-Cigarette/Vaping Use Never Used 07/07/25 16:11 Thrive Assessment: Date of Thrive Assessment Date Thrive assessed 03/10/25 07/07/25 15:39 Coding Level of Care Code Est Pt Level 4 (16303) Diagnoses Lumbar paraspinal muscle spasm M62.830 SI (sacroiliac) joint dysfunction M53.3 Assessment & Plan Assessment & Plan (1) Lumbar paraspinal muscle spasm: Code(s): M62.830 - Muscle spasm of back Category: Medical Plan: XR of the lumbar spine ordered given duration of symptoms. Recommend ibuprofen 800 mg every 8 hours as needed as well as methocarbamol 750 mg every 8 hours as needed. Continue with topical analgesics and 10s machine. Referred to Physical therapy for further evaluation and management. Given duration, suspect patient will ultimately need MRI but will proceed with conservative measures to start (2) SI (sacroiliac) joint dysfunction: Code(s): M53.3 - Sacrococcygeal disorders, not elsewhere classified Category: Medical Plan: XR of the sacroiliac spine ordered. Plan as below Plan Plan as above. Orders: Orders XR sacroiliac joint min 3V Today M53.3 - Sacrococcygeal disorders, not elsewhere classified, M62.830 - Muscle spasm of back PT Evaluation and Treatment Today G89.29 - Other chronic pain, M53.3 - Sacrococcygeal disorders, not elsewhere classified, M54.50 - Low back pain, unspecified XR lumbar spine 2-3V Today M53.3 - Sacrococcygeal disorders, not elsewhere classified, M62.830 - Muscle spasm of back Medications: New ibuprofen 800 mg PO Q8H PRN 90 tabs 0RF pain methocarbamol 750 mg PO Q8H 90 tabs 0RF
[2025-07-07 16:09] VITALS: BP 124/80; PULSE 53; RESP 16; TEMP 36.3; O2SAT 97; BMI 29.5
== END 2025-07-07 17:02 | disposition home or self-care (01) ==
LOC: HO.HMCHD 15:59
PROVIDERS: PCP Physician Assistant; Visit Provider Physician Assistant
DX: M62.830 Muscle spasm of back (principal); M53.3 Sacrococcygeal disorders, not elsewhere classified

== ENCOUNTER 2025-07-07 15:59 | Outpatient (REF) | payer OTHER, SELFPAY ==
--- NOTE | ~2025-07-07 | XR_ITS ---
CLINICAL HISTORY: M62.830 - Muscle spasm of back 3 views sacroiliac joints Comparison: None provided Findings No acute fractures. No significant degenerative change. No erosions. IMPRESSION: No acute findings This document has been electronically signed by: Bobby Casas MD on 07/09/2025 10:21:49
--- NOTE | ~2025-07-07 | XR_ITS ---
CLINICAL HISTORY: M53.3 - Sacrococcygeal disorders, not elsewhere classified 3 views lumbar spine Comparison: None provided Findings: Normal alignment. No acute fractures or dislocation. No significant degenerative change. IMPRESSION: No acute findings. No significant degenerative change. This document has been electronically signed by: Bobby Casas MD on 07/09/2025 10:15:00
--- OUTSIDE RECORDS SUMMARY | 2025-07-07 18:36 | XMS_ITS | Patient Health Record ---
Author Organization [facility] Address [address] [place] [address] Care Team Providers Care Crew Foreman Name Role Phone [employer] (RETIRED) Rafael CHAMORRO Primary Care Provide r Mary HarrisDanilo Unavailable [phone] Allergies Allergen (clinical drug ingredient) Drug/Non Drug [...] Problem Status W/U Status Risk Notes Problem 356041985 Colon cancer screening (Z12.11) Active confirmed Problem 750281460 Gastro-esophagea l reflux disease without esophagitis (K21.9) Active confirmed Problem 43123478 Diarrhea (R19.7) Active confirmed Problem Diverticular disease of colon (159573858) Diverticulosis of large intestine without perforation or abscess without bleeding (K57.30) Active confirmed Problem 384317758 Irritable bowel syndrome with diarrhea (K58.0) Active confirmed Problem Gastroesophageal reflux disease (735185840) Gastroesophageal reflux disease (K21.9) Active confirmed Problem 160609114 Blood in stool (K92.1) Active confirmed Problem 868893743 Elevated liver enzymes (R74.8) Active confirmed Problem 883400709 Gastroesophageal reflux disease, unspecified whether esophagitis present [...] Insured Coverage Start Date Coverage End Date [facility] [address] [place] [address] [id number] AMADOU JACKMAN Self - patient is the insured Medical (General) History Medical History History ICD Code Asthma Hypertension Denies [place],DM,CVA,Lung disease,renal dise ase IBS-longstanding intermitent loose stool GERD-OTC Prilosec or H2-Blockers Negative colonoscopy in 2016 other than some internal hemorrhoids Upper endoscopy in 2016 reve aled a small hiatal hernia but no esophagitis nor Velasquez's esophagus; duodenal biopsies were negative for celiac disease Surgical History Surgery Date(Month/Year) Hernia repair as an infant
== END 2025-07-07 16:00 | disposition home or self-care (01) ==
LOC: HO.XRAY 15:59
PROVIDERS: PCP Physician Assistant; Visit Provider Physician Assistant
DX: M53.3 Sacrococcygeal disorders, not elsewhere classified (principal); M62.830 Muscle spasm of back; J45.909 Unspecified asthma, uncomplicated; E78.5 Hyperlipidemia, unspecified; K21.9 Gastro-esophageal reflux disease without esophagitis; M54.50 Low back pain, unspecified; G89.29 Other chronic pain
CPT/HCPCS: 72100; 72202

== ENCOUNTER → 2025-07-07 16:47 | Outpatient (BNV) | payer OTHER, SELFPAY | PROVIDERS: PCP Physician Assistant; Visit Provider Radiology Vascular & Interventional Radiology | DX: M62.830 Muscle spasm of back (principal); M53.3 Sacrococcygeal disorders, not elsewhere classified | CPT/HCPCS: 72100; 72202 ==

== ENCOUNTER 2025-08-22 09:16 | Outpatient (AMB) | payer OTHER, SELFPAY ==
--- NOTE | 2025-08-22 07:59 | A.OFFVIS_ITS ---
Intake Visit Reasons: Former Smoker Allergies aspirin (ASPIRIN) Allergy (Unknown, Verified 07/07/25 15:38) STOMACH UPSET HPI HPI Former Smoker: Details: Initial visit for this 55yo former smoker with a 25PYH. Patient started smoking at age 20 for 35 years at 1/2-1ppd. He quit 2021. . Denies marijuana use. Denies second hand smoke exposure. Denies exposure to chemicals or substances like asbestos. . Denies known family history of lung cancer. Denies personal history of cancers. Denies chest CT in last year. . Notes travel outside the [place]. [place] Denies recent respiratory illness or recent hospitalization for respiratory issues. . Denies fever, chills, new/worsening cough, hemoptysis, hoarseness or dysphagia. Denies significant chest pain, significant dyspnea or unintentional weight loss. Patient Lung Cancer Screening Questionnaire reviewed with patient by provider. . Shared Decision Making Completed. Patient meets criteria. Discussed in detail with patient, the risk vs benefit of LDCT screening. Patient consents to proceed with scan. Discussed and encouraged continued smoking cessation. [facility] Medical History (Updated 08/22/25 @ 09:21 by Jo Ann Noel PA-C) Tubular adenoma of colon Personal history of nicotine dependence Obesity ZULLY (obstructive sleep apnea) GERD (gastroesophageal reflux disease) IBS (irritable bowel syndrome) HTN (hypertension) Asthma High cholesterol Surgical History (Updated 08/22/25 @ 09:24 by Jo Ann Noel PA-C) History of photorefractive keratectomy (PRK) History of colonoscopy History of esophagogastroduodenoscopy (EGD) H/O hernia repair Social History (Updated 08/22/25 @ 09:22 by Jo Ann Noel PA-C) [facility]: [facility] Patient Tobacco Use Status: Former Tobacco user Tobacco use type: Cigarette Years Smoked: (onset 20yo, 1/2-1ppd x 35yrs, 25pyh - quit 2021) e-Cigarette/Vaping Use: Never Used service: No Current occupational status: employed 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 - Patient meets criteria for LDCT for lung cancer screening purposes and is asymptomatic. - Smoking cessation counseling offered. Patients can always call [phone]. - Will arrange for a LDCT scan of the chest for screening purposes at [facility]. - Risks, benefits, and alternatives were discussed in detail and the patient agrees to proceed. - Risks discussed include but are not limited to: radiation exposure, anxiety during testing and while awaiting results, false negatives, false positives and possibility of additional intervention such as further imaging or surgical procedures for benign disease. - Benefits are obviously detection of lung cancer at an early stage which can lead to improved outcomes. - Discussed the importance of screening program compliance with adherence to yearly LDCT scan as scheduled - or sooner interval scans for personalized screening regimen. - Discussed follow up plan. Our office will send a letter discussing results and if needed set up phone call and office visit based on CT findings. - Patient educated on results categorization and the management decisions for suspicious findings potentially found on the screening LDCT scan. Any patient with a Lung RADS score of 3 or 4 will be reviewed by a multidisciplinary team at [facility] to form a plan of action in regards to scan findings. - If further work up is warranted for a suspicious lung finding this will be followed by the Lung Cancer Screening program in conjunction with the Thoracic Surgery Department at [facility]. - A copy of the office note and LDCT will be sent to the patient's PCP - as well as documentation on any associated further plans of care. - Incidental findings on LDCT are the PCP's responsibility. These findings are indicated with an S finding on the LDCT Assessment. A note discussing the findings will be sent to the PCP who is then responsible for further management. - All questions answered.? Coding Level of Care Code Lung Cancer Screening G0296 Diagnoses Personal history of nicotine dependence Z87.891
--- OUTSIDE RECORDS SUMMARY | 2025-08-22 09:37 | XMS_ITS | Patient Health Record ---
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 Role Phone [employer] (RETIRED) Rafael CHAMORRO Primary Care Provide r Mary Harris Danilo Unavailable [phone] Allergies Allergen (clinical drug ingredient) Drug/Non Drug Allergy documented on EMR Reaction Allergy Type Onset Date Status aspirin Aspirin Unknown Drug Allergy Active Reason For Referral No Information Medications Medication SIG (Take, Route, Frequency, Duration) Notes Start Date End Date Status Albuterol Active Pantoprazole Sodium 40 MG Tablet Delayed Release 1 tablet Orally Once a day Active Atorvastatin Calcium 10 MG Tablet 1 tablet Orally Once a day Active Immunizations Vaccine Route Administration Date Status Comme nts Influenza Unknown 12/06/2022 Refused Social History Tobacco Use: Social History Observation Description Date Details (start date - stop date) Former Smoker NA - NA Social History Drugs/Alcohol: Social Info Question Answer Notes Alcohol Screen Did you have a drink containing alcohol in the past year? Yes How often did you have a drink containing alcohol in the past year? 2 to 4 times a month (2 points) How many drinks did you have on a typical day when you were drinking in the past year? 3 or 4 drinks (1 point) Points 3 Interpretation Negative Tobacco Use: Social Info Question Answer Notes Tobacco Use/Smoking Patient is a former smoker How long has it been since you last smoked? 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 alcohol. Problems Problem Type SNOMED Code ICD Code Onset Dates Problem Status W/U Status Risk Notes Problem Colon cancer screening (904907983) Colon cancer screening (Z12.11) Active confirmed Problem Gastro-esophageal reflux disease without esophagitis (880858024) Gastro-esophageal reflux disease without esophagitis (K21.9) Active confirmed Problem Diarrhea (21608463) Diarrhea (R19.7) Active con firmed Problem Diverticular disease of colon (966426662) Diverticulosis of large intestine without perforation or abscess without bleeding (K57.30) Active confirmed Problem Irritable bowel syndrome with diarrhea (536733774) Irritable bowel syndrome with diarrhea (K58.0) Active confirmed Problem Gastroesophageal reflux disease (670283953) Gastroesophageal reflux disease (K21.9) Active confirmed Problem Blood in stool (387764068) Blood in stool (K92.1) Active confirmed Problem Elevated liver enzymes level (216202330) Elevated liver enzymes (R74.8) Active confirmed Problem Gastroesophageal reflux disease (932781946) Gastroesophageal reflux disease, unspecified whether esophagitis present [...] Insured Coverage Start Date Coverage End Date [facility] [address] [place] [address] [id number] AMADOU JACKMAN Self - patient is the insured Medical (General) History Medical History History ICD Code Asthma Hypertension Denies [place],DM,CVA,Lung disease,renal dise ase IBS-longstanding intermitent loose stool GERD-OTC Prilosec or H2-Blockers Negative colonoscopy in 2016 other than some internal hemorrhoids Upper endoscopy in 2016 reve aled a small hiatal hernia but no esophagitis nor Velasquez's esophagus; duodenal biopsies were negative for celiac disease Surgical History Surgery Date(Month/Year) Hernia repair as an
== END 2025-08-22 09:52 | disposition home or self-care (01) ==
LOC: HO.HPS 09:17
PROVIDERS: PCP Physician Assistant; Referring Provider Physician Assistant; Visit Provider Physician Assistant Medical
DX: Z87.891 Personal history of nicotine dependence (principal)
CPT/HCPCS: G0296

== ENCOUNTER 2025-08-22 09:30 | Outpatient (REF) | payer OTHER, SELFPAY ==
--- NOTE | ~2025-08-22 | CT_ITS ---
EXAMINATION: CT LUNG SCREENING HISTORY: Z87.891 - Personal history of nicotine dependence TECHNIQUE: Low dose axial images were obtained from the sternal notch to upper abdomen without IV contrast per standard departmental protocol. Sagittal and coronal reformatted images were also obtained and reviewed. One or more of the following techniques was used for dose reduction: Automated exposure control, adjustment of the mA and/or kV according to patient size, use of iterative reconstruction technique. DLP: 6 5 mGy-cm COMPARISON: Previous chest x-ray most recently October 2023 and lung windows from abdominal and pelvic CT November 2015 FINDINGS: Lung nodules: Right lun mm peripheral or subpleural right middle lobe nodule along the minor fissure axial image 235 series 3. Question 2 mm perivascular right middle lobe nodule versus bronchial wall thickening axial image 50 series 3. 3 x 5 mm right middle lobe nodule axial image 259 series 3. 2 mm peripheral or subpleural right lower lobe nodule axial image 275 and 334 series 3. 3 x 6 mm nodule in the lateral costophrenic sulcus of the right lower lobe axial image 43 series 3, not appreciably changed from lung windows from abdominal and pelvic CT November 2015. Left lun mm left lower lobe nodule axial image 328 series 3. 2 x 5 mm peripheral or subpleural left lower lobe nodule axial image 359 series 3. This is slightly increased in size from 2 x 3 mm on abdominal and pelvic CT from 2016. 3 mm peripheral or subpleural left lower lobe nodule along the diaphragmatic pleural surface axial image 424 series 3 not appreciably changed from November [address] Scattered areas of mild bronchial wall thickening. Central airways are clear. Emphysema: none Coronary Calcification: none Aortic Arch Calcification: none Potentially Significant Incidentals : none Additional Chest Findings: There is no pleural or pericardial effusion. No mediastinal or axillary lymphadenopathy is identified. No chest wall mass. No enlarged axillary lymph nodes. Visualized upper abdomen: The visualized portions of the liver, spleen, and adrenals have an unremarkable unenhanced appearance. There is mild diverticulosis of the colon. Degenerative changes of the spine. CT/CT lung screening IMPRESSION: Bilateral pulmonary nodules, largest measuring 6 mm. LUNG-RADS ASSESSMENT: Lung-RADS 3: Probably Benign MANAGEMENT: Continue annual screening with LDCT in 12 months Category S: N/A Electronically signed by: Amelia Marley MD 08/22/2025 12:12 PM EST
== END 2025-08-22 09:31 | disposition home or self-care (01) ==
LOC: HO.CT 09:30
PROVIDERS: PCP Physician Assistant; Visit Provider Physician Assistant Medical
DX: Z12.2 Encounter for screening for malignant neoplasm of respiratory organs (principal); Z87.891 Personal history of nicotine dependence
CPT/HCPCS: 71271; G0296

== ENCOUNTER → 2025-08-22 09:33 | Outpatient (BNV) | payer OTHER, SELFPAY | PROVIDERS: PCP Physician Assistant; Visit Provider Radiology Diagnostic Radiology | DX: Z12.2 Encounter for screening for malignant neoplasm of respiratory organs (principal); Z87.891 Personal history of nicotine dependence; R91.8 Other nonspecific abnormal finding of lung field | CPT/HCPCS: 71271 ==

== ENCOUNTER 2025-09-04 16:00 | Outpatient (RCR) | payer OTHER, SELFPAY ==
--- NOTE | 2025-08-12 15:59 | MHC.PT.EP ---
[facility] [place] Office [place] Office [place] Office [address] [phone] F: [phone] F: [phone] F: [phone] F: [phone] Physical Therapy Plan of Care Date of Evaluation: 08/12/25 Date of Surgery: N/A Diagnosis: chronic back pain (RL) Assessment: pt is a 54 y/o male presenting to physical therapy w/ referring diagnosis of chronic back pain. His symptoms are consistent w/ L SI joint pain. Impairments include pain, decreased range of motion, decreased strength, impaired functional mobility, impaired postural awareness, and altered ambulation mechanics. pt is a good candidate for skilled PT due to age, potential remediation of impairments, typical disease/condition progression and prognosis, comorbidities, and motivation. pt would benefit from skilled PT intervention to provide a tailored strengthening and stretching exercise program, functional training, gait training, postural re-training, neuromuscular re-education, modalities as needed for pain, equipment safety demonstration. Frequency and Duration: The patient will be seen 1x/wk for 2 wks Short Term Goals: pt will demo neutral spine w/ lifting and seated postures. Half-Way Goals: pt will be I w/ HEP to promote self-management of condition. Treatment Plan: Modalities to reduce pain, spasms and effusion. Manual therapy to restore motion and function. Therapeutic exercise to improve strength and flexibility. Neuromuscular re-education for posture and balance. Therapeutic activities to return to functional activities of daily living. Electronically signed by: Heather Farrar PT, DPT Please sign and return to therapist. Thank you for your referral.
--- NOTE | 2025-09-04 17:33 | MHC.PT.DC ---
[facility] [place] Office [place] Office [place] Office [address] [phone] F: [phone] F: [phone] F: [phone] F: [phone] Physical Therapy Discharge Report Diagnosis: chronic back pain (RL) Date of Surgery: N/A Date of Evaluation: 08/12/25 Date of Discharge: 09/04/25 Treatments to Date: 2 Cancellations to Date: 0 No Shows to Date: 0 Discharge Status: Independent with HEP Patient Elected to Stop Discharge Summary: The patient overall has had minimal to low back pain. He presented with swayback posture, increase thoracic kyphosis, hip and tibial external rotation and poor hip and lumbar spine dissociation that contribute to poor lumbar spine resilience. He was instructed in a home exercise program to address these impairments as well as general spine posture recommendations. He does not wish to continue with PT due to high co-pay. He is discharged from this physical therapy plan of care per his request. Electronically signed by: Heather Farrar PT, DPT Please sign and return to therapist. Thank you for your referral.
== END 2025-09-04 17:33 | disposition home or self-care (01) ==
LOC: HO.PT 16:00
PROVIDERS: PCP Physician Assistant; Visit Provider Physician Assistant
DX: M53.3 Sacrococcygeal disorders, not elsewhere classified (principal); M54.50 Low back pain, unspecified; G89.29 Other chronic pain
CPT/HCPCS: 97110; 97162; 97530

== ENCOUNTER 2025-09-16 16:30 | Outpatient (AMB) | payer OTHER, SELFPAY ==
[2025-09-16 16:31] VITALS: BMI 31.2
--- NOTE | 2025-09-16 16:31 | A.OFFPC_ITS ---
Vital Signs 09/16/25 16:31 Height 5 ft 8 in Weight 205 lb BMI 31.2 Intake Visit Reasons: Annual Allergies aspirin (ASPIRIN) Allergy (Unknown, Verified 07/07/25 15:38) STOMACH UPSET Medication List - Last Reconciled 09/16/25 by John Kovacs MD albuterol sulfate 90 mcg/actuation 2 puffs PO TID PRN omega 8-vdg-icy-fish oil 60-90-500 mg (Fish Oil) 1 cap PO DAILY omeprazole 20 mg PO DAILY perfluorohexyloctane (PF) 100% ([place] (PF)) 1 drp ophthalmic (eye) QID Tobacco use date assessed: 07/07/25 Dental Screening Dental Screen Date: 07/07/25 HPI HPI Comments History of Present Illness Details History of Present Illness The patient is a 55 year old male presenting for a physical and management of chronic conditions, notably a flare-up of lower back pain. He reports chronic lower back pain, possibly related to the sacroiliac joint, which has been present for several years. Previous workup included clear x-rays in May, and he was referred to physical therapy (PT). He attended PT twice but stopped as his symptoms had resolved at the time. The pain recently returned after a workout and performing prescribed exercises. He was previously prescribed methocarbamol and 600 mg ibuprofen, which he never picked up due to a desire to minimize medication use. The patient has a history of asthma, for which he uses an albuterol inhaler as needed, but reports it is well-controlled and he does not require frequent refills. He has a history of hypercholesterolemia, with a recent LDL of 130 mg/dL, which is an improvement from previous values but still elevated. He acknowledges eating a lot of eggs daily. Other history includes GERD, managed with omeprazole 20 mg, and a past history of an irregular heartbeat. Past medical history includes having smoked previously and having his colonoscopy up to date. Blood work from May was reviewed, showing a borderline red blood cell count of 4.4, which is not considered clinically significant. He has had COVID-19 multiple times but declines the COVID-19 vaccine, though he agreed to receive the influenza vaccine during the visit. Medical History: - Asthma: Well-controlled, uses albutero l inhaler as needed. - Lower back pain: Chronic, intermittent , possibly sacroiliac joint-related. - Hypercholesterolemia: LDL 130 mg/dL as of May. - Gastroesophageal reflux disease (GERD) - History of irregular heartbeat - History of smoking - History of COVID-19 infection Medications: - Albuterol inhaler: Three times as need ed for asthma. - [place]-3 fish oil - Omeprazole 20 mg: For GERD. - Eye drops - Cyclobenzaprine: Uses occasionally for back pain. Diagnostic Results: - Labs (May): Blood counts and electr olytes were good. Red blood cell count was 4.4, which is borderline but not clinically concerning. LDL cholesterol was 130 mg/dL. - Imaging (May): X-rays of the back w ere completely clear with no bony deformity noted. - Screening: Colonoscopy is up to date. 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 - Habits: He reports consuming a large q uantity of eggs daily. - Substance Use: He has a past history o f smoking. 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 [facility] Medical History (Updated 09/16/25 @ 17:39 by John Kovacs MD) Annual physical exam Tubular adenoma of colon Personal history of nicotine dependence Obesity ZULLY (obstructive sleep apnea) GERD (gastroesophageal reflux disease) IBS (irritable bowel syndrome) HTN (hypertension) Asthma High cholesterol Surgical History (Updated 08/22/25 @ 09:24 by Jo Ann Noel PA-C) History of photorefractive keratectomy (PRK) History of colonoscopy History of esophagogastroduodenoscopy (EGD) H/O hernia repair Social History (Updated 08/22/25 @ 09:22 by Jo Ann Noel PA-C) [facility] Patient Tobacco Use Status: Former Tobacco user Tobacco use type: Cigarette Years Smoked: (onset 20yo, 1/2-1ppd x 35yrs, 25pyh - quit 2021) e-Cigarette/Vaping Use: Never Used service: No Current occupational status: employed 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 Danilo Portillo, Trinity Terrazas, Santana Dow and colleagues, with an educational trent from [employer]. Review of Systems Narrative Review of Systems - Musculoskeletal: Reports intermittent lower back pain, especially after specific workouts. - Constitutional: Denies any notable issues. - Genitourinary: Reports normal urination. - Gastrointestinal: Reports normal bowel movements. Denies nausea or vomiting. - Cardiovascular: Reports a history of irregular heartbeat. Denies chest pain. - Respiratory: Denies shortness of breath. - Neurological: Denies headaches. - Eyes: Denies vision changes. All systems reviewed & are unremarkable except as reviewed in HPI and above Physical exam (Primary Care) BMI result Body Mass Index 31.2 Tobacco/Smoking Status: Tobacco use Status Tobacco use date assessed 07/07/25 09/16/25 16:34 Patient Tobacco Use Status Former Tobacco user 09/16/25 16:34 Tobacco use type Cigarette 09/16/25 16:34 e-Cigarette/Vaping Use Never Used 09/16/25 16:34 Thrive Assessment: Date of Thrive Assessment Date Thrive assessed 03/10/25 09/16/25 16:34 Narrative Physical Exam General: +Alert and oriented, Well nourished, No acute distress. Eye: Pupils are equal, round and reactive to light, Intact accommodation, Extraocular movements are intact, Normal conjunctiva, Vision unchanged. HENT: Normocephalic, Atraumatic, Tympanic membranes are clear, Normal hearing, Oral mucosa is moist, No pharyngeal erythema, Ear canals patent. Respiratory: Lungs CTA bilaterally, No wheeze, Respirations are non-labored. Cardiovascular: Regular rate, Regular rhythm, S1 auscultated, S2 auscultated, No murmur, Good pulses equal in all extremities, Normal peripheral perfusion, No edema. Gastrointestinal: Soft, Non-tender, Non-distended, Normal bowel sounds, No organomegaly. Musculoskeletal: Normal range of motion, Normal strength, No tenderness, No swelling, No deformity, Normal gait. Integumentary: Warm, Dry, [place], Intact. Neurologic: Alert, Oriented, Normal sensory, Normal motor function, No focal defects, Cranial Nerves II-XII are grossly intact, Normal deep tendon reflexes. Psychiatric: Cooperative, Appropriate mood & affect, Normal judgment. Coding Level of Care Code Est Pt Level 3 (12872) Est Pt Prev Care 40-64y(83610) Diagnoses Lumbar paraspinal muscle spasm M62.830 Mild intermittent asthma without complication J45.20 Asthma complication type: uncomplicated Asthma persistence: intermittent Asthma severity: mild High cholesterol E78.00 Annual physical exam Z00.00 Comment [id number] Assessment & Plan Assessment & Plan (1) Lumbar paraspinal muscle spasm: Comment: - The pain is intermittent and exacerbated by exercise, likely muscular in origin given the clear X-rays. - An MRI would require failing physical therapy first. - The patient will be prescribed cyclobenzaprine 5 mg three times a day for 10 days to help with muscle spasms. - He is encouraged to restart and complete physical therapy. Code(s): M62.830 - Muscle spasm of back Category: Medical (2) Asthma: Comment: - The patient's asthma is well-controlled with as-needed albuterol. - Continue current management. Code(s): J45.909 - Unspecified asthma, uncomplicated Category: Medical Qualifiers: Asthma complication type: uncomplicated Asthma persistence: intermittent Asthma severity: mild Qualified Code(s): J45.20 - Mild intermittent asthma, uncomplicated (3) High cholesterol: Comment: - The patient's LDL is elevated at 130 mg/dL, which poses a cardiovascular risk for heart attack or stroke. - While medication is not indicated at this time as the patient is not hypertensive, the need for change was emphasized. - The patient's high egg consumption was noted. Code(s): E78.00 - Pure hypercholesterolemia, unspecified Category: Medical (4) Annual physical exam: Comment: - The patient received an influenza vaccine during the visit. - He declined a COVID-19 vaccine. - His colonoscopy is up-to-date. Code(s): Z00.00 - Encounter for general adult medical examination without abnormal findings Category: Medical Plan: Health Maintenance: - Colonoscopy: Up to date. - Vaccinations: Agreed to and received the influenza vaccine during the visit. He declined the COVID-19 vaccine. - Cardiovascular Risk: Discussed the risks associated with his elevated cholesterol, including heart attack and stroke. Patient was informed and verbally consented to the use of an ambient scribe for clinic note documentation during this visit. Vital signs reviewed. Comprehensive history, review of systems, and physical exam completed. Medications, allergies, and problem list reviewed and updated. Counseling provided on nutrition, regular exercise, sleep hygiene, and moderation of alcohol use. Discussed age-appropriate screenings (mammogram, colonoscopy, Pap, bone density) and immunizations (flu, COVID, shingles, Tdap). Screened for depression, fall risk, and home safety; no current concerns. Discussed stress management, dental and vision care, and importance of ongoing preventive follow-up. Routine labs ordered for metabolic and lipid screening. Patient educated on healthy lifestyle and agrees with the plan. Plan I reviewed the patient's complaints, primarily his chronic, intermittent lower back pain. I explained that his clear X-rays suggest a muscular issue rather than a bony one. We discussed the management plan, which includes a course of cyclobenzaprine 5 mg for 10 days to manage muscle spasms, and I strongly encouraged him to restart and complete his physical therapy. I explained that further imaging like an MRI would only be pursued if he fails a course of physical therapy. We also discussed his elevated LDL cholesterol and the associated cardiovascular risks, such as heart attack and stroke. Lastly, we discussed vaccinations; he agreed to and received the influenza vaccine in the office but declined the COVID-19 vaccine. I reassured him that despite his concerns, he is in good health for his age. Orders: Orders Influenza [id number] Immunization Today Z23 - Encounter for immunization Medications: New cyclobenzaprine 5 mg PO TID PRN 30 tabs 0RF muscle spasm Fluarix [id number] (PF) (flu vac ts 2024-(6mos up)-PF) 0.5 mL IM ONCE 0.5 mL 0RF NS Z23 - Encounter for immunization Patient Instructions: - Take cyclobenzaprine 5 mg three times a day for the next 10 days to help with your back muscle spasms. This medication can make you tired. - Go back to physical therapy (PT) for your lower back pain and complete the rec ommended course. Your pain is likely from a muscle issue, and PT is the best treatment. - We will only consider more advanced imaging, like an MRI, if physical therapy does not help your back pain. - Be mindful of your high cholesterol. It increases your risk for heart attack and stroke. We will continue to monitor it. - You received your flu shot today. Your arm may feel heavy or sore for a few h ours, which is a normal sign that the vaccine is working. - Continue taking your other medications as prescribed, including your albuterol inhaler for asthma when you need it. - Call us to schedule a follow-up appointment at your convenience if your symptoms do not improve or if you have new concerns.
--- OUTSIDE RECORDS SUMMARY | 2025-09-16 20:15 | XMS_ITS | Patient Health Record ---
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 alcohol. Problems Problem Type SNOMED Code ICD Code Onset Dates Problem Status W/U Status Risk Notes Problem Colon cancer screening (314924154) Colon cancer screening (Z12.11) Active confirmed Problem Gastro-esophageal reflux disease without esophagitis (419441798) Gastro-esophageal reflux disease without esophagitis (K21.9) Active confirmed Problem Diarrhea (37196733) Diarrhea (R19.7) Active con firmed Problem Diverticular disease of colon (058430300) Diverticulosis of large intestine without perforation or abscess without bleeding (K57.30) Active confirmed Problem Irritable bowel syndrome with diarrhea (713492294) Irritable bowel syndrome with diarrhea (K58.0) Active confirmed Problem Gastroesophageal reflux disease (804465650) Gastroesophageal reflux disease (K21.9) Active confirmed Problem Blood in stool (093358035) Blood in stool (K92.1) Active confirmed Problem Elevated liver enzymes level (238725538) Elevated liver enzymes (R74.8) Active confirmed Problem Gastroesophageal reflux disease (825408220) Gastroesophageal reflux disease, unspecified whether esophagitis present [...] Insured Coverage Start Date Coverage End Date [facility] [address] [place] [address] [id number] AMADOU JACKMAN Self - patient is the insured Medical (General) History Medical History History ICD Code Asthma Hypertension Denies IA,DM,CVA,Lung disease,renal dise ase IBS-longstanding intermitent loose stool GERD-OTC Prilosec or H2-Blockers Negative colonoscopy in 2016 other than some internal hemorrhoids Upper endoscopy in 2016 reve aled a small hiatal hernia but no esophagitis nor Velasquez's esophagus; duodenal biopsies were negative for celiac disease Surgical History Surgery Date(Month/Year) Hernia repair as an
== END 2025-09-16 17:13 | disposition home or self-care (01) ==
LOC: HO.HMCHD 16:30
PROVIDERS: PCP Physician Assistant; Visit Provider Student in an Organized Health Care Education/Training Program
DX: Z00.00 Encounter for general adult medical examination without abnormal findings (principal); M62.830 Muscle spasm of back; J45.20 Mild intermittent asthma, uncomplicated; E78.00 Pure hypercholesterolemia, unspecified